=== PATIENT | male | born 1945 | race Caucasian/White ===

== ENCOUNTER 2023-11-19 04:51 | Emergency (ER) | payer MEDICARE, OTHER, SELFPAY ==
[2023-11-19 04:54] VITALS: BP 169/114
--- NOTE | 2023-11-19 07:18 | ED.GENMED ---
History of Present Illness
General
Chief Complaint: Nose Bleed
Source: patient
Exam Limitations: none
Time Seen by Provider: 11/19/23 06:41
History of Present Illness
History of Present Illness:
77-year-old male presents with left-sided nosebleed starting 3:30 AM this morning. He woke up to go to the bathroom and felt dripping coming out of his left side of his nose. He is not anticoagulated. He dealt with a right-sided nosebleed years
ago. No known injury. A nasal clip was placed on triage and he states the bleeding has stopped
Phy Exam
Physical Exam
Physical Exam:
General: Well-appearing male no acute respiratory distress
HEENT: Normocephalic atraumatic bilateral nasal cavities inspected. Right nasal cavity patent without any blood. Friable membranes noted over the anterior medial wall of the left side of the nose. This appears to be the site of bleeding. Looking
up further and more posterior no active bleeding. Posterior pharynx without any fresh blood.
Course
Vital Signs
Initial and Last Documented VS:
Initial Vital Signs
Temp Pulse Resp BP Pulse Ox
98 F 78 16 169/114 97
11/19/23 04:54 11/19/23 04:54 11/19/23 04:54 11/19/23 04:54 11/19/23 04:54
Last Documented Vital Signs
Temp Pulse Resp BP Pulse Ox
98 F 78 16 169/114 97
11/19/23 04:54 11/19/23 04:54 11/19/23 04:54 11/19/23 04:54 11/19/23 04:54
MDM/Problems Addressed
Differential Diagnosis Includes:
Acute epistaxis. Appears to be slowed at the moment but was bleeding anteriorly. A piece of cotton soaked with lidocaine and epinephrine was placed into the left side of the nose and will reevaluate after this removal consider cauterization if
needed
*Critical Care Note
Total Time (30-74mins, 75-104mins- exclusive of procedures): Not Applicable
Update Note
Update Note:
The piece of cotton soaked with lidocaine was removed and the nose was further inspected. The friable area over the medial anterior aspect of the left nasal cavity was cauterized with silver nitrate. Further inspection was made higher more
posterior in the nose and there was no further bleeding.
Patient was cauterized. Reevaluated. Time after the nose was cauterized and there was no further bleeding. Stable for discharge. Recommend follow-up with ENT
ED Attending Note
-
Portions of this chart may have been created with voice recognition software.� Occasional wrong word or��sound alike� substitutions may have occurred due to the inherent limitations of voice recognition software.
Discharge Plan
Departure
Patient Disposition: Home (Routine Discharge)
Date of Disposition: 11/19/23
Time of Disposition: 08:15
Patient with high blood pressure during this ER visit?: No
Discharge Problem:
Acute anterior epistaxis
Referrals:
Patricia Rosales, DO [Family Provider] -
Activity Restrictions/Additional Instructions:
Apply Vaseline to the nose to maintain moisture in the nose. Avoid trauma to the nose otherwise. Return if worse otherwise follow-up with your ENT doctor
Discharge Date and Time
Print Language: WOLOF
[2023-11-19 08:00] VITALS: BP 158/84
== END 2023-11-19 08:20 | disposition home or self-care (01) ==
LOC: EMR 04:51
PROVIDERS: EMERGENCY PHYSICIAN Emergency Medicine; FAMILY PHYSICIAN Internal Medicine
DX: R04.0 Epistaxis (principal)
CPT/HCPCS: 99282; 30901